=== PATIENT | female | born 1950 | race Caucasian/White ===

== ENCOUNTER → 2016-12-20 | Outpatient (CLI) | payer OTHER ==
[2016-12-20 13:47] LABS: CHOLESTEROL/HDL RATIO 2.4
== END | disposition home or self-care (01) ==
LOC: C.LABMFLN 08:14
PROVIDERS: ATTEND Physician Assistant
DX: E78.5 Hyperlipidemia, unspecified (principal)

== ENCOUNTER 2017-10-15 09:38 | Inpatient (IN) | payer OTHER ==
[2017-09-19 13:27] VITALS: BMI 28.0
--- NOTE | 2017-09-19 14:10 | PAT Medication Instructions ---
Service Date Sep 19, 2017. Current Home Medication List Atorvastatin (Lipitor), 40 MG PO HS Ogbxigrah-Gluuiabkigr-Zrxfwpi (Glucosamine Complex), 1 TAB PO QAM Celecoxib (Celebrex), 200 CAP PO QAM Coenzyme Q10 (Ubidecarenone) (Coq-10), 1 CAP PO QAM Fluticasone Propionate (Nasal) (Allergy Nasal [place] 24 Ho), 1 SPRAY MAURA QAM Multivitamin (Multivitamin), 1 TAB PO QAM Omeprazole (Prilosec), 20 MG PO QAM Tramadol (Ultram), 1 TAB PO UD PRN for Pain [gummy fiber], 2 TAB PO QAM Medication Instructions For Your Scheduled Surgery -Contact your surgeon for instructions for: Celecoxib (Celebrex), 200 CAP PO QAM - Hold the following medications 2 weeks prior to surgery: Hnhptbfdn-Sdgbiadulgw-Vmyfboz (Glucosamine Complex), 1 TAB PO QAM Coenzyme Q10 (Ubidecarenone) (Coq-10), 1 CAP PO QAM - Hold the following medications the morning of surgery: Multivitamin (Multivitamin), 1 TAB PO QAM [gummy fiber], 2 TAB PO QAM - Take the following medications the morning of surgery:: Fluticasone Propionate (Nasal) (Allergy Nasal [place] 24 Ho), 1 SPRAY MAURA QAM Omeprazole (Prilosec), 20 MG PO QAM Tramadol (Ultram), 1 TAB PO UD PRN for Pain (if needed, can be taken up to four hours before surgery) - Take the following medications as scheduled the night before surgery: Atorvastatin (Lipitor), 40 MG PO HS Tramadol (Ultram), 1 TAB PO UD PRN for Pain (if needed) If you have any questions please call us at [phone] or [phone] or [phone]
--- NOTE | 2017-09-19 14:44 | DIAGNOSTIC IMAGING REPORT ---
CHEST 2 VIEWS ROUTINE CLINICAL HISTORY: 67 years-old Female presenting with preoperative assessment. TECHNIQUE: PA and lateral views of the chest were obtained. COMPARISON: None. FINDINGS: Cardiomediastinal silhouette normal. Lungs and pleural spaces clear. Osseous structures normal. Upper abdomen normal. IMPRESSION: 1. No acute cardiopulmonary disease. Electronically signed by: Robert Marie M.D. 09/19/2017 2:43 PM Dictated Date/Time: 09/19/2017 2:42 PM
[2017-09-19 14:59] LABS: BASO % 0.6 %; BASO ABS # 0.04 K/uL (0-0.2); EOS % 2.3 %; EOS ABS # 0.16 K/uL (0-0.5); HEMATOCRIT 40.2 % (37-47); HEMOGLOBIN 13.9 g/dL (12.0-16.0); IG# 0.01 K/uL (0.00-0.02); LYMPH % 25.3 %; LYMPH ABS # 1.79 K/uL (1.2-3.4); MEAN CELL VOLUME 93.5 fL (80-100); MEAN CORPUSCULAR HEMOGLOBIN 32.3 pg (25-34); MEAN CORPUSCULAR HGB CONC 34.6 g/dl (32-36); MEAN PLATELET VOLUME 10.4 fL (7.4-10.4); MONO % 5.9 %; MONO ABS # 0.42 K/uL (0.11-0.59); NEUT % 65.8 %; NEUT ABS # 4.65 K/uL (1.4-6.5); PLATELET COUNT 217 K/uL (130-400); RED CELL DISTRIBUTION WIDTH CV 12.9 % (11.5-14.5); RED CELL DISTRIBUTION WIDTH SD 43.7 fL (36.4-46.3); WHITE BLOOD COUNT 7.07 K/uL (4.8-10.8)
[2017-09-19 15:07] LABS: PTT PATIENT 25.3 SECONDS (21.0-31.0)
[2017-09-19 15:08] LABS: ALBUMIN 3.8 gm/dl (3.4-5.0); CALCIUM 9.3 mg/dl (8.5-10.1); CREATININE 0.78 mg/dl (0.60-1.20); POTASSIUM 3.6 mmol/L (3.5-5.1)
[2017-09-20 06:23] LABS: HEMOGLOBIN A1C 5.6 % (4.5-5.6)
--- NOTE | 2017-10-14 19:14 | HISTORY & PHYSICAL EXAMINATION ---
DATE OF ADMISSION: 10/15/2017 CHIEF COMPLAINT: Chronic left knee pain. HISTORY OF PRESENT ILLNESS: This is a 67-year-old female patient of Dr. Moran, complaining of chronic left knee pain, longstanding, now progressively getting worse. The patient has failed conservative treatment including anti-inflammatories, Tylenol, narcotics, intraarticular injections, glucosamine and the use of a sleeve. The patient has been diagnosed with end-stage osteoarthritis per clinical and radiographic exams. The patient has increased pain with weightbearing activities and her pain does interfere with her activities of daily living. PAST MEDICAL HISTORY: Hypercholesterolemia, osteoarthritis, acid reflux. SOCIAL HISTORY: Nonsmoker and nondrinker. SURGICAL HISTORY: Bilateral carpal tunnel, trigger thumb on the right and trigger finger on the right. FAMILY HISTORY: Noncontributory. REVIEW OF SYSTEMS: Chronic left knee pain, otherwise denies any shortness of breath, chest pain, nausea, vomiting or any other joint complaints. MEDICATIONS: Tramadol as needed, atorvastatin 20 mg daily, Flonase 50 mcg actuation two sprays intranasally daily, omeprazole 20 mg daily, Celebrex 200 mg daily. ALLERGIES: INCLUDE BACITRACIN, NEOMYCIN, SULFA. PHYSICAL EXAM: GENERAL: Well-developed, well-nourished 67-year-old female, in no acute distress. She is alert and oriented x3 and pleasant. HEENT: Normocephalic, atraumatic. Extraocular motions are intact. Pupils are equal and reactive to light. HEART: Regular rate and rhythm, no murmurs appreciated. LUNGS: Clear. ABDOMEN: Soft and nontender. Bowel sounds are present. EXTREMITIES: Left knee reveals a range of motion of -10 to 125 degrees. She has a varus deformity with crepitation. She has a mild effusion. She has 4/5 strength and neurologically and neurovascularly, she is intact in her left lower extremity. DIAGNOSES: Left knee end-stage osteoarthritis, hypercholesterolemia, osteoarthritis, acid reflux. PLAN: The patient was advised of her diagnosis. Indications, risks, benefits, postop course have all been reviewed. The patient wished to proceed with a left total knee arthroplasty. Necessary consent forms, preoperative testing and clearances will be obtained.
--- NOTE | 2017-10-14 19:52 | HISTORY & PHYSICAL EXAMINATION ---
DATE OF ADMISSION: 10/15/2017 CHIEF COMPLAINT: Chronic left knee pain. HISTORY OF PRESENT ILLNESS: This is a 67-year-old female patient of Dr. Moran, complaining of chronic left knee pain, longstanding, now progressively getting worse. The patient has failed conservative treatment including Celebrex, tramadol, viscosupplementation, steroid injections, glucosamine/chondroitin and the use of a sleeve. The patient has been diagnosed with end-stage osteoarthritis per clinical and radiographic exams. The patient has increased pain with weightbearing activities and her pain does interfere with her activities of daily living. PAST MEDICAL HISTORY: Hypercholesterolemia, osteoarthritis, acid reflux. FAMILY HISTORY: Noncontributory. SOCIAL HISTORY: Nonsmoker and nondrinker. PAST SURGICAL HISTORY: Both carpal tunnels, trigger thumb on the right. MEDICATIONS: Include tramadol as needed, atorvastatin 20 mg daily, Flonase 50 mcg actuation two sprays daily, omeprazole 20 mg daily, Celebrex 200 mg daily. ALLERGIES: BACITRACIN, SULFA AND NEOSPORIN. PHYSICAL EXAMINATION: GENERAL: Well-developed, well-nourished 67-year-old female in no acute distress. She is alert, oriented x3 and pleasant. HEENT: Normocephalic, atraumatic. Extraocular motions are intact. Pupils are equal and reactive to light. HEART: Regular rate and rhythm. No murmurs are appreciated. LUNGS: Clear. ABDOMEN: Soft and nontender. Bowel sounds are present. EXTREMITIES: Left knee reveals a limited range of motion of -10 to 125 degrees. She has a varus deformity with crepitation. She has a mild effusion. She has 4/5 strength. NEUROLOGIC: Neurovascularly, she is intact in her left lower extremity. DIAGNOSES: Left knee end-stage osteoarthritis, hypercholesterolemia, osteoarthritis, acid reflux. PLAN: The patient was advised of her diagnosis. Indications, risks, benefits, postop course have all been reviewed. The patient wished to proceed with a left total knee arthroplasty. Necessary consent forms, preoperative testing and clearances will be obtained.
[2017-10-15] VITALS (9 sets, daily range): BP systolic 125–154; BP diastolic 71–82; PULSE 67–87; TEMP 36.4–37.1; O2SAT 93–100; Ht 165.1 cm; Wt 77.4 kg
[~2017-10-15] VITALS: Ht 165.1 cm; Wt 77.4 kg
[2017-10-15] MEDS: TRANEXAMIC ACID INJ 1,000 MG x 2 Bags IV SCH ×4 (06:00→06:30)
[~2017-10-15 09:38] MED LIST: ACETAMINOPHEN 500 MG TAB PO SCH; ATOR-24 PO; ATROPINE SULFATE 0.1 MG/ML 5ML SYR IV PRN; BOSW1TAB3 PO; BUPIVACAINE 0.25% 30 ML VIAL ONE; BUPIVACAINE 0.5 % 5 MG/1 ML PF 10ML VIAL ONE; CEFAZOLIN 1000MG IV PUSH 7.5 ML IV SCH; CLB100 PO; COEN100C11 PO; CeleBREX 200 MG CAP PO SCH; DEXAMETHASONE 4 MG TAB PO SCH; EpHEDrine SULFATE INJ 50 MG/ML AMP IV PRN; FAMOTIDINE 20 MG TAB PO SCH; FLUT50SP45 NAE; GABAPENTIN 300 MG CAP PO SCH; LACTATED RINGER'S 1000ML 1,000 ML IV SCH; LACTATED RINGER'S 1000ML 500 ML IV SCH; METOCLOPRAMIDE HCL 10 MG TAB PO SCH; MULT-506 PO; PRLSR20 PO; ROPIVACAINE 5MG/ML 30 ML 150 MG, BUPIVACAINE 0.5% MPF INJ 30 ML, EpINEphrine HCL INJ 0.... INFIL SCH; TRAM-10 PO; gummy fiber PO
[2017-10-15] MEDS ORDERED: MIDAZOLAM HCL 1 MG/ML 2ML VIAL ONE ×3 (09:45→13:28)
[2017-10-15] MEDS ORDERED: FENTANYL CITRATE INJ 50 MCG/1 ML 2 ML VIAL ONE (09:46)
--- NOTE | 2017-10-15 10:24 | History & Physical Bridge Note ---
H&P Re-Evaluation Bridge Note: I have examined the patient, reviewed the History & Physical and in the interval since the performance of the History & Physical I have noted the following changes of clinical significance: No changes noted
[2017-10-15] MEDS ORDERED: POVIDONE-IODINE OP SOLN 30 ML BTL ONE (11:00)
[2017-10-15] MEDS ORDERED: ORTHO JOINT ANESTHETIC ONE (11:00)
[2017-10-15] MEDS ORDERED: DEXAMETHASONE SOD INJ 4 MG/ML VIAL ONE (12:42)
[2017-10-15] MEDS ORDERED: PROPOFOL IV EMULSION 10 MG/ML 20 ML VIAL IV ONE (12:42)
[2017-10-15] MEDS ORDERED: ONDANSETRON INJ 2 MG/ML 2 ML VIAL ONE (12:42)
--- NOTE | 2017-10-15 13:17 | [facility] Post Operative Brief Note ---
Immediate Operative Summary Operative Date Oct 15, 2017. Pre-Operative Diagnosis Left knee end-stage osteoarthritis Post-Operative Diagnosis Left knee end-stage osteoarthritis Procedure(s) Performed Left Total Knee Arthroplasty Surgeon Dr. Jaret Martins Courier Driver Surgeon(s) Mic Hua PA-C Estimated Blood Loss 5ml Findings Consistent with Post-Op Diagnosis Specimens A) Left knee- bone & tissue Drains 2 hemovac Anesthesia Type MAC Spinal Regional Complication(s) none Disposition Disposition: Recovery Room / PACU
[2017-10-15] MEDS ORDERED: BISACODYL 10 MG SUPP PR PRN (14:00)
[2017-10-15] MEDS ORDERED: OXYCODONE HCL IR 5 MG TAB (IMMEDIATE RELEASE) PO PRN (14:00)
[2017-10-15] MEDS ORDERED: MAGNESIUM HYDROXIDE SUSP 30 ML UDC PO PRN (14:00)
[2017-10-15] MEDS ORDERED: ALUMINUM/MAGNESIUM/SIMETH (MAALOX MAX) 30 ML UDC PO PRN (14:00)
[2017-10-15] MEDS ORDERED: ONDANSETRON INJ 2 MG/ML 2 ML VIAL IV PRN (14:00)
[2017-10-15] MEDS ORDERED: MoRPHine SULFATE 2 MG/ML CARP IV PRN (14:00)
--- NOTE | 2017-10-15 14:22 | DIAGNOSTIC IMAGING REPORT ---
LEFT KNEE 2 VIEWS History: Left total knee arthroplasty. Degenerative arthritis. Postop. FINDINGS: The patient is status post a left total knee arthroplasty. The hardware is intact. No fracture or dislocation. Skin mehran and surgical drains are in place. IMPRESSION: Left total knee arthroplasty. No evidence for hardware complication. Electronically signed by: Dashawn Hughes M.D. 10/15/2017 2:21 PM Dictated Date/Time: 10/15/2017 2:20 PM
--- NOTE | 2017-10-15 14:31 | Anesthesiology Progress Note ---
Anesthesia Post Op Note Date & Time Oct 15, 2017 at 14:31 Vital Signs Pain Intensity: 0 Vital Signs Past 12 Hours Date Time Temp Pulse Resp B/P (MAP) Pulse Ox O2 Delivery O2 Flow Rate FiO2 10/15/17 14:20 36.4 70 14 142/78 100 Nasal Cannula 2 10/15/17 14:10 70 14 136/67 100 Nasal Cannula 2 10/15/17 14:00 77 14 135/70 100 Nasal Cannula 2 10/15/17 13:54 36.3 82 14 113/60 98 Oxymask 10 10/15/17 10:00 99 Room Air Notes Mental Status: alert / awake / arousable, participated in evaluation Pt Amnestic to Procedure: Yes Nausea / Vomiting: adequately controlled Pain: adequately controlled Airway Patency, RR, SpO2: stable & adequate BP & HR: stable & adequate Hydration State: stable & adequate Neuraxial Anesthesia: was administered, sensory block is resolving Anesthetic Complications: no major complications apparent
--- NOTE | 2017-10-15 15:45 | Medical Consult ---
Consultation Date of Consultation: Oct 15, 2017. Attending Physician: Jaret Martins M.D. Reason for Consultation: medical management History of Present Illness Ms. Martinez is post op left TKA. She feels good, still has some numbness in her lower extremities, no pain. She has a past medical history of hypercholesteremia and GERD ROS Constitutional: no chills, aches, sweats or fever Respiratory: no sob,cough, sputum, or wheezing Cardiac: no chest pain, palpitations, edema, orthopnea or lightheadedness GI: no abdominal pain, nausea, vomiting, diarrhea or constipation : no dysuria or hesitancy Extremities: see HPI Skin: no rash All other systems reviewed and negative Family History non contributory Social History Smoking Status: Never Smoker Smokeless Tobacco Use: No Alcohol Use: none Drug Use: none Marital Status: Housing Status: lives with significant other Occupation Status: retired Allergies Coded Allergies: Bacitracin (Verified Allergy, Unknown, will make wounds that med may be used on worse, 09/19/17) Neomycin (Verified Allergy, Unknown, will make wounds that med may be used on worse, 09/19/17) Polymyxin B (Verified Allergy, Unknown, will make wounds that med may be used on worse, 09/19/17) Home Medications Active Reported Coq-10 (Coenzyme Q10 (Ubidecarenone)) 100 Mg Cap 1 Cap PO QAM Multivitamin (Multivitamins) Tab 1 Tab PO QAM Glucosamine Complex (Iravjwugu-Kkibfdkjrwm-Vefoudf) 1 Tab Tab 1 Tab PO QAM [gummy fiber] 2 Tab PO QAM chewables Ultram (Tramadol HCl) 50 Mg Tab 1 Tab PO UD PRN Lipitor (Atorvastatin Calcium) 40 Mg Tab 40 Mg PO HS Prilosec (Omeprazole) 20 Mg Capcr 20 Mg PO QAM Allergy Nasal [place] 24 Ho (Fluticasone Propionate (Nasal)) 50 Mcg/Act Spr 1 [place] MAURA QAM Celebrex (Celecoxib) 100 Mg Cap 200 Cap PO QAM 30 Days Current Inpatient Medications Current Inpatient Medications Medications (Trade) Dose Ordered Sig/Bart Route Start Time Stop Time Status Last Admin Dose Admin Cefazolin Sodium 7.5 ml @ 2.5 mls/min PREOP IV 10/15/17 06:00 10/15/17 18:00 10/15/17 11:57 2.5 MLS/MIN Acetaminophen (Tylenol Tab) 1,000 mg PREOP PO 10/15/17 06:00 10/15/17 18:00 10/15/17 10:54 1,000 MG Celecoxib (CeleBREX CAP) 200 mg PREOP PO 10/15/17 06:00 10/15/17 18:00 10/15/17 10:57 200 MG Dexamethasone (Decadron Tab) 8 mg PREOP PO 10/15/17 06:00 10/15/17 18:00 10/15/17 10:56 8 MG Famotidine (Pepcid Tab) 20 mg PREOP PO 10/15/17 06:00 10/15/17 18:00 10/15/17 10:56 20 MG Gabapentin (Neurontin Cap) 300 mg PREOP PO 10/15/17 06:00 10/15/17 18:00 10/15/17 10:55 300 MG Metoclopramide HCl (Reglan Tab) 10 mg PREOP PO 10/15/17 06:00 10/15/17 18:00 10/15/17 10:55 10 MG Lactated Ringer's 1,000 ml @ 15 mls/hr Q24H IV 10/15/17 06:00 10/16/17 05:59 Atorvastatin Calcium (Lipitor Tab) 40 mg HS PO 10/15/17 21:00 11/14/17 20:59 Fluticasone Propionate (Flonase Nasal [place]) 1 sprays QAM MAURA 10/16/17 09:00 11/15/17 08:59 Multivitamins (Multivitamin Tab) 1 tab QAM PO 10/16/17 09:00 11/15/17 08:59 Morphine Sulfate (MoRPHine SULFATE INJ) 2 mg Q4HWA PRN IV 10/15/17 14:00 10/29/17 13:59 Potassium Chloride/Dextrose/ Sod Cl 1,000 ml @ 100 mls/hr Q10H IV 10/15/17 15:15 10/16/17 15:14 Cefazolin Sodium 2000 mg/Syringe 15 ml @ 3.75 mls/ min Q8H IV 10/15/17 20:00 10/16/17 04:03 Celecoxib (CeleBREX CAP) 200 mg BID PO 10/15/17 21:00 11/14/17 20:59 Oxycodone HCl (Roxicodone Immediate Rel Tab) 1 TABLET FOR PAIN RATING... Q4H PRN PO 10/15/17 14:00 10/29/17 13:59 Acetaminophen (Tylenol Tab) 1,000 mg Q8 PO 10/15/17 20:00 11/14/17 19:59 Magnesium Hydroxide (Milk Of Magnesia Susp) 30 ml Q6H PRN PO 10/15/17 14:00 11/14/17 13:59 Bisacodyl (Dulcolax Supp) 10 mg DAILY PRN CO 10/15/17 14:00 11/14/17 13:59 Senna (Senokot Tab) 17.2 mg HS PO 10/15/17 21:00 11/14/17 20:59 Docusate Sodium (coLACE CAP) 100 mg BID PO 10/15/17 21:00 11/14/17 20:59 Al Hydrox/Mg Hydrox/Simethicone (Maalox Max Susp) 15 ml Q4H PRN PO 10/15/17 14:00 11/14/17 13:59 Ondansetron HCl (Zofran Inj) 4 mg Q6H PRN IV 10/15/17 14:00 11/14/17 13:59 Ferrous Gluconate (Ferrous Gluconate Tab) 324 mg TIDM PO 10/15/17 17:45 11/14/17 17:59 Pantoprazole Sodium (Protonix Tab) 40 mg QAM PO 10/16/17 09:00 10/20/17 08:59 Tramadol HCl (Ultram Tab) 1 tablet for pain rating... Q4H PRN PO 10/15/17 14:00 11/14/17 13:59 Aspirin (Ecotrin Tab) 81 mg BID PO 10/15/17 21:00 11/14/17 20:59 Physical Exam Date Time Temp Pulse Resp B/P (MAP) Pulse Ox O2 Delivery O2 Flow Rate FiO2 10/15/17 14:38 99 Nasal Cannula 2.0 10/15/17 14:35 99 Nasal Cannula 2.0 10/15/17 14:33 36.4 71 16 141/71 (94) 99 Nasal Cannula 2.0 10/15/17 14:20 36.4 70 14 142/78 100 Nasal Cannula 2 10/15/17 14:10 70 14 136/67 100 Nasal Cannula 2 10/15/17 14:00 77 14 135/70 100 Nasal Cannula 2 10/15/17 13:54 36.3 82 14 113/60 98 Oxymask 10 10/15/17 10:00 99 Room Air General: no distress Eyes: normal inspection, PERLL Respiratory: chest non tender, clear to auscultation, normal breath sounds, no respiratory distress, no accessory muscle use Cardiac: regular rate and rhythm, no rub or gallop, no murmur, no edema, no jvd , palpable pedal pulses GI/: active bowel sounds, no abd pain or tenderness, soft, non distended Extremities: normal range of motion, normal strength, non tender, numbness to palpation bilaterally Neuro/Psych: alert and oriented x 3, normal mood and affect Skin: normal color, dry Laboratory Results Last 24 Hours Test 10/15/17 14:40 Assessment & Plan Ms. Martinez is a 67 year old woman post op left TKA. Post op left TKA - monitor for acute blood loss anemia - cbc am - bowel regimen, pain control, dvt prophylaxis per primary team Hypercholesteremia - continue lipitor GERD - continue protonix Supervising Note Dr. Sheriff I performed a history and physical examination on the patient. I reviewed above note and agree with it. I discussed plan with APC and patient. During my face to face encounter with the patient, I answered all of the patient's questions. Will continue lipitor and protonix as stated above for Dyslipidemia, and GERD. Medicine will sign off case. Please call us for any concerns or questions
[2017-10-15] MEDS: D5W AND 1/2NSS + 20MEQ KCL 1,000 ML IV SCH (16:01)
--- NOTE | 2017-10-15 16:27 | [facility] Operative Report ---
Operative Report Operative Date Oct 15, 2017. Pre-Operative Diagnosis Left knee end-stage osteoarthritis Post-Operative Diagnosis Same Procedure(s) Performed Left total knee arthroplasty Surgeon Dr. Jaret Martins Corporate Tax Preparer Surgeon(s) Mic Hua PA-C Estimated Blood Loss 5ml Findings Grade 4 medial compartment DJD grade 4 varus knee Specimens A) Left knee- bone & tissue Drains 2 hemovac Anesthesia Spinal sedation regional block orthomix Complication(s) None Disposition Recovery Room / PACU Indications 67-year-old female end-stage arthritis left knee failed conservative management Description of Procedure The patient was taken to the operating room and anesthetized under spinal sedation regional block. Patient was placed supine on the the operating table. A pneumatic tourniquet was placed about the left upper thigh. The knee exam demonstrated varus knee no pseudolaxity flexion contracture -5 good flexion.. The involved leg was elevated exsanguinated with Esmarch bandage and the pneumatic tourniquet was raised to 325 millimeters mercury. A longitudinal incision was made across the anterior knee. Skin flaps were elevated. An incision was made into the medial retinaculum and extended up into the mid third of the quadriceps tendon and extended down to the tibial tubercle. Intra- articular findings demonstrated medial compartment OA anterior medial bone-on- bone. The knee was exposed by excising cruciate ligaments and menisci. The infrapatellar fat pad was resected. The fat pad over the anterior femur at the upper aspect of the articular surface was resected for placement of the component in that area. A subperiosteal peel lateral release was performed around the patella The [place] 2.0 total knee arthroplasty system was utilized for the procedure. The custom femoral cutting guide was pinned in position. The distal femoral cut was made. The size 6, 5 in 1 cutting block was placed. The anterior posterior and chamfer cuts were made. The knee was extended and a free hand cut technique was performed to the patella. The patella with was measured and the width was reproduced using a patella component. 3 drill holes are made for the patella component pegs. The tibia was then subluxed. The custom tibial cutting block was pinned in position and the proximal tibial cut was made with the oscillating saw. The size 3 tibial trial was externally rotated in line with the tibial tubercle and pinned in position. The punch for the stem was used. The femoral trial was inserted and centered the notch cutting devices were used and the collet was placed. Tibial trials were used for the insert. The size 12 trial gave balanced ligaments through full range of motion. Patella tracking was assessed with range of motion. The patella tracked centrally. The trials were removed. The Orthomix anesthetic cocktail was injected per protocol. The cut bone surfaces and soft tissue were copiously irrigated with pulsatile lavage saline. The final components were cemented with Simplex cement. The final components were 6 Oxinium posterior stabilized left femur [employer] journey 2.0 femoral component, 3 tibial baseplate, 12 mm high flex poly-tibial insert and 35 mm patella dome component. While the cement cured the Betadine soak was used per protocol. When the cement cured the knee was copiously irrigated with pulsatile lavage saline solution. 2 drains were brought out laterally connected to Hemovac. The quadriceps tendon and medial retinaculum were closed with interrupted [id number] #1 Vicryl sutures. The knee was taken through full range of motion and repair was secure. The subcutaneous tissues were closed with 2-0 Vicryl sutures. The skin was closed with mehran. A sterile dressing was applied. The tourniquet was let down and the patient had good capillary refill to the extremity. The patient tolerated the procedure well. My physician assistant spa manager Mic Hua assisted in the procedure including prepping draping leg positioning soft tissue retraction instrument management and assisted in the closure ,dressings application and will participate in postoperative care the patient. I attest to the content of the Intraoperative Record and any orders documented therein. Any exceptions are noted below.
[2017-10-15] MEDS: FERROUS GLUCONATE 324 MG TAB PO SCH (17:54)
[2017-10-15] MEDS: CEFAZOLIN IV 2,000 MG in SYRINGE 0 ML IV SCH (20:12)
[2017-10-15] MEDS: ASPIRIN 81 MG ECTAB PO SCH (20:12)
[2017-10-15] MEDS: SENNA 8.6 MG TAB PO SCH (20:13)
[2017-10-15] MEDS: ATORVASTATIN 40 MG TAB PO SCH (20:13)
[2017-10-15] MEDS: CeleBREX 200 MG CAP PO SCH (20:13)
[2017-10-15] MEDS: DOCUSATE SODIUM 100 MG CAP PO SCH (20:13)
[2017-10-15] MEDS: ACETAMINOPHEN 500 MG TAB PO SCH (20:14)
[2017-10-16] MEDS: D5W AND 1/2NSS + 20MEQ KCL 1,000 ML IV SCH ×2 (00:42→10:27)
[2017-10-16 02:59] VITALS: BP 98/55; PULSE 58; TEMP 36.4; O2SAT 97
[2017-10-16] MEDS: CEFAZOLIN IV 2,000 MG in SYRINGE 0 ML IV SCH (03:56)
[2017-10-16] MEDS: TRAMADOL HCL 50 MG TAB PO PRN ×4 (04:03→20:34)
[2017-10-16] MEDS: ACETAMINOPHEN 500 MG TAB PO SCH ×3 (05:29→21:45)
[2017-10-16 07:02] LABS: HEMATOCRIT 37.1 % (37-47); HEMOGLOBIN 12.9 g/dL (12.0-16.0); MEAN CORPUSCULAR HEMOGLOBIN 32.3 pg (25-34); MEAN CORPUSCULAR HGB CONC 34.8 g/dl (32-36); MEAN PLATELET VOLUME 10.3 fL (7.4-10.4); PLATELET COUNT 208 K/uL (130-400); RED CELL DISTRIBUTION WIDTH CV 12.7 % (11.5-14.5); RED CELL DISTRIBUTION WIDTH SD 43.1 fL (36.4-46.3); WHITE BLOOD COUNT 19.21 K/uL (4.8-10.8)
[2017-10-16 07:07] VITALS: BP 118/70; PULSE 67; TEMP 36.5; O2SAT 96
[2017-10-16 07:39] LABS: CALCIUM 8.8 mg/dl (8.5-10.1); CREATININE 0.87 mg/dl (0.60-1.20)
[2017-10-16] MEDS: MULTIVITAMIN TAB PO SCH (08:45)
[2017-10-16] MEDS: CeleBREX 200 MG CAP PO SCH ×2 (08:45→20:36)
[2017-10-16] MEDS: DOCUSATE SODIUM 100 MG CAP PO SCH ×2 (08:45→20:36)
[2017-10-16] MEDS: ASPIRIN 81 MG ECTAB PO SCH ×2 (08:45→20:35)
[2017-10-16] MEDS: FERROUS GLUCONATE 324 MG TAB PO SCH ×3 (08:46→17:50)
[2017-10-16] MEDS: PANTOprazole SOD 40 MG TAB PO SCH (08:46)
[2017-10-16] MEDS: FLUTICASONE PROPIONATE NA SPR 16 GM BTL NAE SCH (08:46)
[2017-10-16] MEDS ORDERED: NON-FORMULARY MEDICATION (Coenzyme Q10 (Ubidecarenone) (Coq-10) 1 CAP) PO SCH (09:00)
[2017-10-16] MEDS ORDERED: MULTIVITAMIN TAB PO SCH (09:00)
--- NOTE | 2017-10-16 10:10 | Orthopedic Progress Note ---
Orthopedic Progress Note Date of Service Oct 16, 2017. Subjective Post OP Day: 1 Reports: feeling well, pain controlled w PO medications, Denies: complaints, chest pain, SOB, nausea / vomiting, light headedness, calf pain Objective calves soft nontender, N/V intact, capillary refill less than 2 sec., dressing C /D/I, A&O x3, toes mobile Date Time Temp Pulse Resp B/P (MAP) Pulse Ox O2 Delivery O2 Flow Rate FiO2 10/16/17 07:07 36.5 67 17 118/70 (86) 96 Room Air 10/16/17 02:59 36.4 58 15 98/55 (69) 97 Room Air 10/16/17 01:35 Room Air 10/15/17 22:53 37.1 79 16 125/74 (91) 93 Room Air 10/15/17 19:56 36.7 87 18 138/81 (100) 95 Room Air 10/15/17 17:19 36.5 67 16 154/78 (103) 100 Nasal Cannula 2.0 10/15/17 16:03 36.7 75 16 147/82 (103) 100 Nasal Cannula 2.0 10/15/17 15:35 Nasal Cannula 2.0 10/15/17 15:35 36.7 70 16 149/79 (102) 100 Room Air 10/15/17 14:38 99 Nasal Cannula 2.0 10/15/17 14:35 99 Nasal Cannula 2.0 10/15/17 14:33 36.4 71 16 141/71 (94) 99 Nasal Cannula 2.0 10/15/17 14:20 36.4 70 14 142/78 100 Nasal Cannula 2 10/15/17 14:10 70 14 136/67 100 Nasal Cannula 2 10/15/17 14:00 77 14 135/70 100 Nasal Cannula 2 10/15/17 13:54 36.3 82 14 113/60 98 Oxymask 10 Laboratory Results 24 Hours: Test 10/16/17 06:47 Hematocrit 37.1 % Hemoglobin 12.9 g/dL Assessment & Plan Assessment: POD #1, LEFT TKA Plan: PT/ OT DVT PROPH- ASA D/C PLANNING- OPPT PER MEDICINE Inhouse Planning Pain Management: Celebrex, Ultram, Morphine, PO Tylenol, Oxy IR DVT Prophylaxis: TEDs, SCDs, ASA Discharge Planning Discharge Planning: home with oppt Pain Management: Celebrex, PO Tylenol, Oxy IR DVT Prophylaxis: TEDs ASA Therapy: Physical Therapy, Occupational Therapy
--- NOTE | 2017-10-16 14:24 | Anesthesiology Progress Note ---
Anesthesia Post Op Note Date & Time Oct 16, 2017 at 14:23 Vital Signs Vital Signs Past 12 Hours Date Time Temp Pulse Resp B/P (MAP) Pulse Ox O2 Delivery O2 Flow Rate FiO2 10/16/17 07:40 Room Air 10/16/17 07:07 36.5 67 17 118/70 (86) 96 Room Air 10/16/17 02:59 36.4 58 15 98/55 (69) 97 Room Air Notes Mental Status: alert / awake / arousable, participated in evaluation Pt Amnestic to Procedure: Yes Nausea / Vomiting: adequately controlled Pain: adequately controlled Airway Patency, RR, SpO2: stable & adequate BP & HR: stable & adequate Hydration State: stable & adequate Neuraxial Anesthesia: sensory block resolved Anesthetic Complications: no major complications apparent
[2017-10-16 15:23] VITALS: BP 120/67; PULSE 64; TEMP 36.6; O2SAT 97
[2017-10-16] MEDS: ATORVASTATIN 40 MG TAB PO SCH (20:35)
[2017-10-16] MEDS: SENNA 8.6 MG TAB PO SCH (20:35)
[2017-10-16 23:15] VITALS: BP 107/67; PULSE 61; TEMP 36.6; O2SAT 95
[2017-10-17] MEDS: ACETAMINOPHEN 500 MG TAB PO SCH (05:19)
[2017-10-17] MEDS: TRAMADOL HCL 50 MG TAB PO PRN ×2 (06:25→11:41)
[2017-10-17 06:43] VITALS: BP 120/68; PULSE 72; TEMP 36.5; O2SAT 95
--- NOTE | 2017-10-17 07:03 | Orthopedic Progress Note ---
Orthopedic Progress Note Date of Service Oct 17, 2017. Subjective Post OP Day: 2 Reports: feeling well, pain controlled w PO medications, Denies: complaints, chest pain, SOB, nausea / vomiting, light headedness, calf pain Objective calves soft nontender, N/V intact, capillary refill less than 2 sec., dressing C /D/I, A&O x3, toes mobile SILVERLON IN TACT Date Time Temp Pulse Resp B/P (MAP) Pulse Ox O2 Delivery O2 Flow Rate FiO2 10/17/17 06:43 36.5 72 17 120/68 (85) 95 Room Air 10/16/17 23:50 Room Air 10/16/17 23:15 36.6 61 15 107/67 (80) 95 Room Air 10/16/17 15:33 Room Air 10/16/17 15:23 36.6 64 16 120/67 (84) 97 Room Air 10/16/17 07:40 Room Air 10/16/17 07:07 36.5 67 17 118/70 (86) 96 Room Air Assessment & Plan Assessment: POD #2, LEFT TKA Plan: PT/ OT DVT PROPH- ASA D/C PLANNING- OPPT TODAY PER MEDICINE Inhouse Planning Pain Management: Celebrex, Ultram, Morphine, PO Tylenol, Oxy IR DVT Prophylaxis: TEDs, SCDs, ASA Discharge Planning Discharge Planning: home with oppt Pain Management: Celebrex, PO Tylenol, Oxy IR DVT Prophylaxis: TEDs, ASA Therapy: Physical Therapy, Occupational Therapy
[2017-10-17] MEDS ORDERED: ASPI-320 PO (07:04)
[2017-10-17] MEDS ORDERED: ACET-24 PO (07:04)
[2017-10-17] MEDS ORDERED: ULT50X PO (07:05)
[2017-10-17] MEDS ORDERED: CLB200 PO (07:05)
--- NOTE | 2017-10-17 07:06 | Discharge Instructions ---
Discharge Instructions Date of Service Oct 17, 2017. Admission Reason for Admission: Left Knee Osteoarthritis Discharge Discharge Diagnosis / Problem: LEFT TKA Discharge Goals Goal(s): Improve function Activity Recommendations Activity Limitations: as noted below . Instructions / Follow-Up Instructions / Follow-Up ACTIVITY RECOMMENDATIONS: SELF CARE INSTRUCTIONS AFTER TOTAL KNEE REPLACEMENT A. You may need to continue a physical therapy program after discharge from the hospital. There are several options available to you. Your doctor will assist you in selecting the best one for you. 1. An out-patient facility 2 to 3 times a week for therapy or home therapy. 2. Continue working on all exercises taught to you in the hospital. Your goals should be to increase bending of your knee to 90 degrees and beyond and to fully straighten your knee. B. You may progress at your own pace from walking with a walker or crutches to a cane; then to no assistive devices. C. Make walking a part of your daily routine. Be up as much as comfortable with rest periods throughout the day. Rest with leg elevation is very important. Use the ice wrap frequently for the first 3-4 weeks. D. There are no restrictions on activities. You may ride in a car, shop, participate in applied marine physics professor and all social activities. E. Wear the long elastic stockings (FAUSTO hose) 20 hours a day for 2 weeks after surgery. They can be removed several times a day for laundering and for a bath. F. You may shower, no tub baths until cleared by your doctor. SPECIAL CARE INSTRUCTIONS: VERY IMPORTANT TO READ AND REVIEW A. There are a few signs you need to watch for after you are home. Call [facility] if you notice any of the followin. Increased severe knee pain. Some pain is expected especially when you exercise. 2. Increased swelling in your leg or knee; pain or swelling of the calf muscle in either lower leg. 3. Any fluid drainage from the incision. 4. Shortness of breath or chest pain. B. Please call [facility] at if you have any concerns or questions about your operation or recovery. The doctor or his nurse will return your call promptly. C. You must take antibiotics before dental work, bladder, bowel or other surgery. Your doctor will provide you with a permanent care to carry describing this precaution. IMPORTANT: * REMEMBER TO TAKE ASPIRIN, 81 MG, TWICE DAILY FOR 4 WEEKS UNLESS OTHERWISE DIRECTED. THIS IS YOUR BLOOD THINNER. * HIGH RISK PATIENTS MAY BE PRESCRIBED A STRONGER BLOOD THINNER. THIS WILL BE PROVIDED AT DISCHARGE. * CALL IF INCREASED PAIN, REDNESS, DRAINAGE OR FEVER GREATER THAT 101. * WEAR FAUSTO HOSE 20 HOURS PER DAY FOR 2 WEEKS. * YOU MAY HAVE A LARGE BAND-AID LIKE DRESSING (SILVERON). THIS WILL REMAIN ON YOUR INCISION FOR 7 DAYS, THEN CAN BE REMOVED. IF INCISION IS LEAKING THROUGH DRESSING, CALL THE OFFICE . FOLLOW UP VISIT: If appointment is not already scheduled: Please call [facility] to make a follow-up appointment for 2 weeks after your surgery at . Current Hospital Diet Patient's current hospital diet: Regular Diet Discharge Diet Recommended Diet: Regular Diet Procedures Procedures Performed: Left Total Knee Arthroplasty Pending Studies Studies pending at discharge: no Laboratory Results Hemoglobin A1c Test 09/19/17 13:47 Range/Units Estimated Average Glucose 114 mg/dl Hemoglobin A1c 5.6 4.5-5.6 % Medical Emergencies . Who to Call and When: Medical Emergencies: If at any time you feel your situation is an emergency, please call 911 immediately. . Non-Emergent Contact Non-Emergency issues call your: Primary Care Provider . "Provider Documentation" section prepared by Dom Emerson. . [place] Drug Monitoring Program Search Results: patient reviewed within database, no issues identified
[2017-10-17] MEDS: FERROUS GLUCONATE 324 MG TAB PO SCH (08:50)
[2017-10-17] MEDS: FLUTICASONE PROPIONATE NA SPR 16 GM BTL NAE SCH (08:51)
[2017-10-17] MEDS: CeleBREX 200 MG CAP PO SCH (08:51)
[2017-10-17] MEDS: DOCUSATE SODIUM 100 MG CAP PO SCH (08:51)
[2017-10-17] MEDS: MULTIVITAMIN TAB PO SCH (08:52)
[2017-10-17] MEDS: ASPIRIN 81 MG ECTAB PO SCH (08:52)
[2017-10-17] MEDS: PANTOprazole SOD 40 MG TAB PO SCH (08:52)
[2017-10-17 09:13] VITALS: BP 120/68; PULSE 72; TEMP 36.5; O2SAT 95
--- NOTE | 2017-10-20 16:24 | DISCHARGE SUMMARY ---
DISCHARGE DIAGNOSIS: Degenerative joint disease, left knee. SECONDARY DIAGNOSES: Hypercholesterolemia, gastroesophageal reflux disease. CONSULTS: MONA Verma/Kenny Sheriff M.D. COMPLICATIONS: None. PROCEDURE: Left total knee arthroplasty performed by Dr. Martins on 10/15/2017. BRIEF HISTORY: As dictated in the history and physical. HOSPITAL SUMMARY: The patient was admitted on the above-noted date and had the above-noted surgery performed, which she tolerated well. On the first postoperative day, she was feeling well and pain was controlled and had no complaints. Her calves were nontender. Neurovascularly intact. Dressings clean, dry and intact. Toes were mobile. Capillary refill is less than 2 seconds and hemoglobin was 12.9. Vital signs are stable and she was afebrile and started on physical therapy protocol and continued on DVT prophylaxis and pain management. Plans are for her to return home to do outpatient PT. By her second postoperative day, she was feeling well and pain was controlled. She had no complaints. Calves were nontender. Neurovascularly intact. Dressings clean, dry and intact. Toes were mobile. Vital signs were stable. She was afebrile. She was progressing with her physical therapy. She was remaining medically stable and was felt that she could be discharged to home. For further review, please see chart. LAB AND X-RAY DATA: As per chart. DISCHARGE INSTRUCTIONS: The patient was discharged home in satisfactory condition on 10/17/2017. DIET: Regular. ACTIVITY: Follow TK instruction sheets and special care instructions as noted. Follow up with Dr. Martins in two weeks. The patient to call for appointment if one has not been made for you. DISCHARGE MEDICATIONS: Acetaminophen 1000 mg p.o. q. 8 hours. for 21 days, aspirin 81 mg p.o. b.i.d. for 30 days, Celebrex 200 mg p.o. b.i.d. for 30 days, tramadol 50-100 mg p.o. q. 4 hours. p.r.n. Resume home meds as listed. Stop taking tramadol and you may resume your Celebrex once daily after 30 days.
== END 2017-10-17 12:21 | disposition home or self-care (01) | DRG 470 ==
LOC: C.ACU 09:38 → C.3E 13:54 → ENRESERV 14:03
PROVIDERS: ADMIT Orthopaedic Surgery Sports Medicine; ATTEND Orthopaedic Surgery Sports Medicine
PROC: 0SRD0J9 Replacement of Left Knee Joint with Synthetic Substitute, Cemented, Open Approach (ICD-10-PCS; principal; 2017-10-15 12:15)
DX: M17.12 Unilateral primary osteoarthritis, left knee (principal); E78.5 Hyperlipidemia, unspecified; K21.9 Gastro-esophageal reflux disease without esophagitis; Z88.2 Allergy status to sulfonamides; Z88.1 Allergy status to other antibiotic agents

== ENCOUNTER 2018-09-17 04:53 | Inpatient (IN) ==
--- NOTE | 2018-09-02 12:22 | Anesthesiology Consultation ---
Date of Service September 02, 2018 Assessment & Plan (1) Encounter for pre-operative examination: Chart Review Chart Review: Acceptable Risk for Surgery and Patient NOT seen in Pre Admission Testing History Surgery Operation Date: 09/17/18 11:55 Proposed Procedures p Right Total Knee Arthroplasty - Jaret Martins MD Height/Weight Height: 5 ft 5 in Weight: 72.575 kg Allergies Allergy/AdvReac Type Severity Reaction Status Date / Time bacitracin Allergy Unknown will make Verified 08/03/18 09:24 wounds that med may be used on worse neomycin Allergy Unknown will make Verified 08/03/18 09:24 wounds that med may be used on worse polymyxin B Allergy Unknown will make Verified 08/03/18 09:24 wounds that med may be used on worse Medications Home Medications Medication Instructions Recorded Confirmed Last Taken acetaminophen [Tylenol] 325 mg PO Q6H PRN 08/03/18 08/03/18 Unknown atorvastatin 20 mg PO QPM 08/03/18 08/03/18 Unknown calcium carbonate [Calcium 500] 500 mg PO QPM 08/03/18 08/03/18 Unknown cholecalciferol (vitamin D3) 1,000 unit PO QAM 08/03/18 08/03/18 Unknown [Vitamin D3] cranberry fruit [cranberry] 450 mg PO DAILY 08/03/18 08/03/18 Unknown fluticasone 1 spray INTRANASAL DAILY 08/03/18 08/03/18 Unknown [id number] 1 tab PO BID PRN 08/03/18 08/03/18 Unknown [Osteo Bi-Flex Triple Strength] inulin [Fiber Gummies] 1 tab PO QPM 08/03/18 08/03/18 Unknown multivitamin 1 cap PO QAM 08/03/18 08/03/18 Unknown tramadol 50 mg PO QID PRN 08/03/18 08/03/18 Unknown Past Medical History Medical History GERD (gastroesophageal reflux disease) Hyperlipidemia Past Surgical History Surgical History History of arthroplasty of left knee History of carpal tunnel release B/L Hx of partial thyroidectomy 2/2 CYST Hx of tubal ligation Status post trigger finger release RIGHT Social History Smoking Status: Never smoker Do You Dip or Chew Tobacco: No Hx Alcohol Use: No Hx Substance Use: No substance use type: does not use Testing Electrocardiogram Date: 09/19/17 SB with sinus arrhythmia at 57bpm. Laboratory Results 09/01/18 WBC 5.11 H/H 13.9/41.7 PLATELETS 220 SODIUM 141 POTASSIUM 3.7 CHLORIDE 109 CO2 29 BUN 15 CREATININE 0.79 GLUCOSE 100 PT 10.5 PTT 25.0 INR 1.0 T&S A+Ab-
--- NOTE | 2018-09-16 21:19 | History and Physical Report ---
DATE OF ADMISSION: 09/17/2018 CHIEF COMPLAINT: Chronic right knee pain and instability. HISTORY OF PRESENT ILLNESS: This is a 68-year-old female patient of Dr. Matrins'abbe complaining of chronic right knee pain and instability, longstanding, now progressively getting worse. The patient has failed conservative treatment including anti-inflammatories, Tylenol and intra-articular injections. She has also used a brace. She has failed conservative treatment. She has been diagnosed with end-stage osteoarthritis per clinical and radiographic exams. The patient has increased pain with weightbearing activities and her pain does interfere with her activities of daily living. PAST MEDICAL HISTORY: Hypercholesterolemia, osteoarthritis, otherwise a healthy 68-year-old female. SOCIAL HISTORY: Nonsmoker, nondrinker. PAST SURGICAL HISTORY: Left knee replacement, bilateral carpal tunnel surgeries, trigger thumb surgeries, thyroid surgery and tubal ligation. FAMILY HISTORY: Noncontributory. REVIEW OF SYSTEMS: The patient complains of chronic right knee pain and instability. Otherwise, denies any shortness of breath, chest pain, nausea, vomiting or any other joint complaints. MEDICATIONS: Tramadol as needed, Flonase 50 mcg actuation 2 sprays daily in each nostril, atorvastatin 40 mg daily, tramadol 50 mg as needed, Fiber Gummies 2 g daily, glucosamine 500 mg daily, multivitamin daily, CoQ10 100 mg daily. ALLERGIES: NEOSPORIN/BACITRACIN/POLYMYXIN B, WHICH ALL CAUSE RASHES. PHYSICAL EXAMINATION: GENERAL: Well-developed, well-nourished 68-year-old female in no acute distress. She is alert and oriented x3 and pleasant. HEENT: Normocephalic, atraumatic. Extraocular motions are intact. Pupils are equal and reactive to light. HEART: Regular rate and rhythm, no murmurs appreciated. LUNGS: Clear. ABDOMEN: Soft, nontender, bowel sounds present. EXTREMITIES: Right knee reveals a mild effusion with limited range of motion of 0-130 degrees. She has a varus deformity with medial joint line tenderness. The patient has crepitation with passive range of motion. NEUROLOGIC: Neurovascularly, she is intact in her right lower extremity. DIAGNOSES: Right knee end-stage osteoarthritis, hypercholesterolemia. PLAN: The patient was advised of her diagnosis. Indications, risks, benefits, postop course have all been reviewed. The patient wished to proceed with a right total knee arthroplasty. Necessary consent forms, preoperative testing and clearances will be obtained.
[2018-09-17] MEDS ORDERED: GABAPENTIN 300 MG PO SCH (06:00)
[2018-09-17] MEDS ORDERED: dexAMETHasone 4 MG TAB PO SCH (06:00)
[2018-09-17] MEDS ORDERED: ROPIVACAINE 0.5% HCL/PF 150 MG, BUPIVACAINE 0.5% MPF 30 ML, EPINEPHrine 30MG/30ML (OR U... INFIL SCH (06:00)
[2018-09-17] MEDS ORDERED: TRANEXAMIC ACID 1,000 MG **IV Pre-op IV SCH (06:00)
[2018-09-17] MEDS ORDERED: LR 15ML/HR IV SCH (06:00)
[2018-09-17] MEDS ORDERED: CEFAZOLIN 1000MG 1,000 MG/7.5 ML SYR IV SCH (06:00)
[2018-09-17] MEDS ORDERED: FAMOTIDINE 20 MG TAB PO SCH (06:00)
[2018-09-17] MEDS ORDERED: METOCLOPRAMIDE HCL 10 MG TABLET PO SCH (06:00)
[2018-09-17] MEDS ORDERED: ACETAMINOPHEN 500 MG TAB PO SCH (06:00)
[2018-09-17] MEDS ORDERED: CeleBREX 200 MG CAP PO SCH (06:00)
[2018-09-17] MEDS ORDERED: BUPIVACAINE 0.5 % 5 MG/1 ML PF 10ML VIAL ONE (06:20)
[2018-09-17] MEDS ORDERED: BUPIVACAINE/EPINEPHRINE 0.5% MPF 1:200,000 30 ML VIAL ONE (06:20)
[2018-09-17] MEDS ORDERED: DEXAMETHASONE SOD INJ 4 MG/ML VIAL ONE (06:21)
[2018-09-17] MEDS ORDERED: TRANEXAMIC ACID 1,000 MG **IV Intra-op IV SCH (06:30)
[2018-09-17] MEDS ORDERED: MIDAZOLAM HCL 1 MG/ML 2ML VIAL ONE ×2 (06:46→07:34)
[2018-09-17] MEDS ORDERED: LIDOCAINE HCL 2% 2 ML VIAL/AMP(20MG/ML) INFIL ONE (06:46)
[2018-09-17] MEDS ORDERED: PROPOFOL IV EMULSION 10 MG/ML 20 ML VIAL IV ONE ×3 (06:46→08:03)
[2018-09-17] MEDS ORDERED: fentaNYL citrate 100 MCG/2 ML VIAL ONE (06:47)
[2018-09-17] MEDS ORDERED: POVIDONE-IODINE OP SOLN 30 ML BTL ONE (06:59)
[2018-09-17] MEDS ORDERED: BACITRACIN INJ 50,000 UNIT VIAL ONE (06:59)
[2018-09-17] MEDS ORDERED: ORTHO JOINT ANESTHETIC ONE (06:59)
--- NOTE | 2018-09-17 06:59 | History & Physical Bridge Note ---
Date of Service September 17, 2018 History & Physical Bridge Note I have examined the patient, reviewed the History & Physical and in the interval since the performance of the History & Physical I have noted the following changes of clinical significance: no changes noted
[2018-09-17] MEDS ORDERED: ATROPINE SULFATE 0.1 MG/ML 10ML SYR IV PRN (07:27)
[2018-09-17] MEDS ORDERED: fentaNYL citrate 100 MCG/2 ML VIAL IV PRN (07:27)
[2018-09-17] MEDS ORDERED: ONDANSETRON INJ 2 MG/ML 2 ML VIAL IV PRN ×2 (07:27→10:26)
[2018-09-17] MEDS ORDERED: ePHEDrine sulfate 50 MG/ML AMP IV PRN (07:27)
[2018-09-17] MEDS ORDERED: ONDANSETRON INJ 2 MG/ML 2 ML VIAL ONE (07:37)
--- NOTE | 2018-09-17 09:13 | Post Operative Brief Note ---
Immediate Post Op Note v1 Date of Surgery September 17, 2018 Pre & Post Diagnosis Operation Date: 09/17/18 07:15 Pre-Op Diagnosis: RIGHT KNEE OSTEOARTHRITIS Post-Op Diagnosis: RIGHT KNEE OSTEOARTHRITIS Procedure Operation Date: 09/17/18 07:15 Actual Procedures p Right Total Knee Arthroplasty(Right) - Jaret Martins MD Surgeon Jaret Martins MD Infantry Officer Dom BRITTON Estimated Blood Loss 5 Findings Consistent with Post-Op Diagnosis Specimens Bone cuts Drains Hemovac Drain (10 fr dual trocar) Anesthesia Type Spinal MAC Complications none Disposition Accompanied Patient To Recovery: No Disposition: Recovery Room Overlapping Procedure I was immediately available: during the entire case.
--- NOTE | 2018-09-17 09:20 | Operative Report ---
Post Operative Report Pre & Post Diagnosis Operation Date: 09/17/18 07:15 Pre-Op Diagnosis: RIGHT KNEE OSTEOARTHRITIS Post-Op Diagnosis: RIGHT KNEE OSTEOARTHRITIS Procedure Operation Date: 09/17/18 07:15 Actual Procedures p Right Total Knee Arthroplasty(Right) - Jaret Martins MD Surgeon Jaret Martins MD Mule Tender Dom BRITTON Estimated Blood Loss 5 Findings Consistent with Post-Op Diagnosis Specimens Bone cuts Drains 2 Hemovac Anesthesia Type Spinal MAC Complications none Disposition Accompanied Patient To Recovery: No Disposition: Recovery Room Indications 68-year-old female with chronic progressive osteoarthritis in her right knee. She has successful left knee replacement in the past. Right knee has a varus knee [id number] medial compartment with some bone loss. Description of Procedure The patient was taken to the operating room and anesthetized under spinal MAC regional block. Patient was placed supine on the the operating table. A pneumatic tourniquet was placed about the right upper thigh. The knee exam demonstrated good flexibility good range of motion varus knee no instability. The involved leg was elevated exsanguinated with Esmarch bandage and the pneumatic tourniquet was raised to 325 millimeters mercury. A longitudinal incision was made across the anterior knee. Skin flaps were elevated. An incision was made into the medial retinaculum and extended up into the mid third of the quadriceps tendon and extended down to the tibial tubercle. Intra- articular findings demonstrated medial compartment patellofemoral osteoarthritis [id number] with bone loss flattening of the femoral condyle medial compartment with grade 3-4 patellofemoral DJD. The knee was exposed by excising cruciate ligaments and menisci. The infrapatellar fat pad was resected. The fat pad over the anterior femur at the upper aspect of the articular surface was resected for placement of the component in that area. A subperiosteal peel lateral release was performed around the patella. Typical medial releases were performed to balance ligaments in flexion extension gaps. The Romano [employer]hew journey 2.0 total knee arthroplasty system was utilized for the procedure. The custom femoral cutting guide was pinned in position. The distal femoral cut was made. The size 6, 5 in 1 cutting block was placed. The anterior posterior and chamfer cuts were made. The knee was extended and a free hand cut technique was performed to the patella. The patella with was measured and the width was reproduced using a 35 patella component. 3 drill holes are made for the patella component pegs. The tibia was then subluxed. The custom tibial cutting block was pinned in position and the proximal tibial cut was made with the oscillating saw. The size 3 tibial trial was externally rotated in line with the tibial tubercle and pinned in position. The punch for the stem was used. The femoral trial was inserted and centered the notch cutting devices were used and the collet was placed. Tibial trials were used for the insert. The size 12 posterior stabilized high flex trial gave balanced ligaments through full range of motion. Patella tracking was assessed with range of motion. The patella tracked centrally. The trials were removed. The Orthomix anesthetic cocktail was injected per protocol. The cut bone surfaces and soft tissue were copiously irrigated with antibiotic solution with bacitracin. The final components were cemented with Simplex cement. The final components were Rom[employer]hew journey 2.0 posterior stabilized right femur, 3 tibial baseplate, 12 mm posterior stabilized poly-insert, 35 mm symmetrical patella. While the cement cured the Betadine soak was used per protocol. When the cement cured the knee was copiously irrigated with pulsatile lavage saline solution. 2 drains were brought out laterally connected to Hemovac. The quadriceps tendon and medial retinaculum were closed with interrupted [id number] #1 Vicryl sutures. The knee was taken through full range of motion and repair was secure. The subcutaneous tissues were closed with 2-0 Vicryl sutures. The skin was closed with mehran. A sterile dressing was applied. The tourniquet was let down and the patient had good capillary refill to the extremity. The patient tolerated the procedure well. My physician assistant customer service manager Dom BRITTON assisted in the procedure including prepping draping leg positioning soft tissue retraction instrument management and assisted in the closure ,dressings application and will participate in postoperative care the patient. I attest to the content of the Intraoperative Record and any orders documented therein. Any exceptions are noted below.
--- NOTE | 2018-09-17 09:28 | XRay Report ---
RIGHT KNEE 2 VIEWS History: Right total knee arthroplasty. Degenerative arthritis. Postop. FINDINGS: The patient is status post a right total knee arthroplasty. The hardware is intact. No frac ture or dislocation. Skin mehran and surgical drains are in place. IMPRESSION: Right total knee arthroplasty. No evidence for hardware complication. Electronically signed by: Dashawn Hughes M.D. 09/17/2018 9:26 AM
--- NOTE | 2018-09-17 10:03 | Anesthesiology Progress Note ---
Date of Service September 17, 2018 Anesthesia Post Procedure Vital Signs Vital Signs: Temp Pulse Pulse Resp BP Pulse Ox 09/17/18 09:45 72 22 129/90 100 09/17/18 09:35 74 25 H 139/53 L 100 09/17/18 09:25 72 21 124/67 100 09/17/18 09:15 74 23 117/48 L 99 09/17/18 09:05 37.0 C 95 H 12 99/43 L 97 09/17/18 06:23 36.8 C 62 20 163/78 H 98 Pain Intensity Right Knee: Pain Intensity: 0 Notes Mental Status: alert / awake / arousable Patient Amnestic to Procedure: Yes Nausea / Vomiting: adequately controlled Pain: adequately controlled Airway Patency, RR, SpO2: stable & adequate BP & HR: stable & adequate Hydration State: stable & adequate Anesthetic Complications: no major complications apparent
[2018-09-17] MEDS ORDERED: HYDROmorphone INJ 0.5 MG/0.5 ML SYR IV PRN (10:26)
[2018-09-17] MEDS ORDERED: NALOXONE HCL 0.4 MG/1 ML VIAL/CARP IV PRN (10:26)
[2018-09-17] MEDS ORDERED: MAGNESIUM HYDROXIDE SUSP 30 ML UDC PO PRN (10:26)
[2018-09-17] MEDS ORDERED: SODIUM CHLORIDE 0.9% 1000ML 1,000 ML IV SCH (10:26)
[2018-09-17] MEDS ORDERED: BISACODYL 10 MG SUPP PR PRN (10:26)
[2018-09-17] MEDS ORDERED: OXYCODONE HCL IR 5 MG TAB (IMMEDIATE RELEASE) PO PRN (10:26)
--- NOTE | 2018-09-17 12:24 | Hospitalist Consultation ---
Date of Consultation September 17, 2018 Assessment & Plan (1) Status post right knee replacement: POD #[address] Martins History of osteoarthritis with failed outpatient therapy Estimated blood loss 5 mL No pain currently Able to move foot and toes on right leg PT/OT ordered Further management per orthopedic team (2) Hypercholesterolemia: Continue atorvastatin 40 mg p.o. daily Follow outpatient (3) Elevated hemoglobin A1c: No history of diabetes mellitus Only slightly elevated at 5.8 Follow as an outpatient No further intervention this admission. Glucose 100 on outpatient labs 09/01/2018 (4) DVT prophylaxis: No prior history of thrombolytic disease Aspirin 81 mg p.o. twice daily per orthopedics Increase activity as tolerated per orthopedics Thank you for including us in the care of this patient. Please refer to Dr. Linton's addendum for further recommendations. Supervising Physician Co-Signing Physician Notes PA Supervision Note: I personally saw and examined the patient. I verified all dubon points and agree with TOBI Alcala with the following exceptions and/or additions: Patient doing very well postoperatively. Her feeling and strength are starting to come back in her lower extremities. She denies chest pain shortness of breath, no nausea and ate a good lunch. Abdominal pains. We discussed her diagnosis of prediabetes and she has already lost 15 pounds in last year intentionally. Vitals reviewed Gen: AAOx3, NAD HEENT: Anicteric sclerae, EOMI CV: RRR 2/6 systolic ejection murmur heard best at the right upper sternal border, nl S1S2 Pulm: CTAB no wcr Abd: +BS soft NT ND no masses or hernias Ext: No edema, 2+ DP pulses, right knee with Rogerio dressing in place not removed Skin: No rashes, warm/dry 68-year-old female with history of hyperlipidemia and osteoarthritis, here status post right TKA. She is doing very well postoperatively -As for her murmur-recommended that she follow-up with her PCP on this-could just be a flow murmur for postoperative anemia/blood loss, but could be mild aortic stenosis -Counseled for her prediabetes on importance of following a low carbohydrate diet, increasing exercise once her knee heals, and continued weight loss-she is appreciative hearing about this diagnosis. The hospitalist service will sign off at this time as the patient is very medically stable. Please feel free to reconsult or call with acute issues. History of Present Illness Reason for Consultation: Postoperative medical management Requesting Physician: Dr. Martins Attending Physician: Jaret Martins MD History of Present Illness This is a 68-year-old female that presents with a past medical history of hypercholesterolemia and osteoarthritis. She presented today for elective right total knee arthroplasty. She underwent the procedure without complication or difficulty. She had an estimated blood loss of 5 mL. She is seen at bedside with her present. 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 She denies any significant pain. She is alert and oriented with no acute issues. She denies any recent illness or travel. She has no history of thromboembolic disease. She has no tobacco or ethanol abuse history. She is active and goes to the [facility] to swim and do water volleyball several times per week. 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 She has no acute complaints. It should be noted that the patient history reflects gastroesophageal reflux. Patient denies any history of GERD. Allergies Allergy/AdvReac Type Severity Reaction Status Date / Time bacitracin Allergy Unknown will make Verified 09/17/18 05:59 wounds that med may be used on worse neomycin Allergy Unknown will make Verified 09/17/18 05:59 wounds that med may be used on worse polymyxin B Allergy Unknown will make Verified 09/17/18 05:59 wounds that med may be used on worse Home Medications Home Medications Medication Instructions Recorded Confirmed Type acetaminophen [Tylenol] 325 mg PO Q6H PRN 08/03/18 09/17/18 History atorvastatin 20 mg PO QPM 08/03/18 09/17/18 History calcium carbonate [Calcium 500] 500 mg PO QPM 08/03/18 09/17/18 History cholecalciferol (vitamin D3) 1,000 unit PO QAM 08/03/18 09/17/18 History [Vitamin D3] cranberry 450 mg PO DAILY 08/03/18 09/17/18 History fluticasone 1 spray INTRANASAL DAILY 08/03/18 09/17/18 History [id number]-[id number] 1 tab PO BID PRN 08/03/18 09/17/18 History [Osteo Bi-Flex Triple Strength] inulin [Fiber Gummies] 1 tab PO QPM 08/03/18 09/17/18 History multivitamin 1 cap PO QAM 08/03/18 09/17/18 History tramadol 50 mg PO QID PRN 08/03/18 09/17/18 History Patient History Medical History GERD (gastroesophageal reflux disease) Hyperlipidemia Surgical History History of arthroplasty of left knee History of carpal tunnel release B/L Hx of partial thyroidectomy 2/2 CYST Hx of tubal ligation Status post trigger finger release RIGHT Social History Preferred Language: Turkmen Communication Ability: Effective 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 Beliefs That Will Affect Care: None Current Living Situation: Spouse Other Information That Helps Us Care for You: No Feels Safe at Home: Yes Safety Concerns: Feels Safe At This Time Smoking Status: Never smoker Hx Alcohol Use: No Hx Substance Use: No Review of Systems A total of 12 systems was reviewed and is negative other than as listed above in the HPI Physical Exam Vital Signs (Past 24 Hours): Last Vital Signs Temp 36.5 C 09/17/18 09:55 Pulse 80 09/17/18 11:17 Resp 18 09/17/18 11:17 BP 119/63 09/17/18 11:17 Pulse Ox 96 09/17/18 11:17 Physical Exam: GENERAL : No acute distress EYES: No icterus, gaze conjugate. Pupils equal round and reactive to light NOSE: No evidence of epistaxis. MOUTH: No lesions or candidiasis. Tongue midline. No facial droop. NECK: Supple. No appreciation of stridor or carotid bruits LUNGS: CTA B/L, no wheezes, rales or rhonchi. Good inspirational effort HEART: Regular, rate controlled. No appreciation of murmurs gallops or rubs ABDOMEN: Soft, NT, ND, BS Present. EXTREMITIES: No LE edema, pedal pulses intact. Patient able to move both feet equally. Right leg weak secondary to anesthesia (spinal block). Dressing from foot to hip in place to right leg. This was not taken down to examine the right leg. NEURO: A&OX3. Able to move both lower extremities but weak on the right secondary to anesthesia. No other focal deficits. Pupils equal round and reactive to light. Able to move all extremities. No facial droop. Tongue midline. No slurred speech. Results & Data Laboratory Results No labs drawn this admission Diagnostic Findings RIGHT KNEE 2 VIEWS History: Right total knee arthroplasty. Degenerative arthritis. Postop. FINDINGS: The patient is status post a right total knee arthroplasty. The hardware is intact. No fracture or dislocation. Skin mehran and surgical drains are in place. IMPRESSION: Right total knee arthroplasty. No evidence for hardware complication. Electronically signed by: Dashawn Hughes M.D. 09/17/2018 9:26 AM
[2018-09-17] MEDS: ACETAMINOPHEN 500 MG TAB PO SCH ×2 (13:33→20:48)
[2018-09-17] MEDS: CEFAZOLIN 1000MG 1,000 MG/7.5 ML SYR IV SCH ×2 (15:00→21:56)
[2018-09-17] MEDS: CeleBREX 200 MG CAP PO SCH (20:47)
[2018-09-17] MEDS: SENNA 8.6 MG TAB PO SCH (20:48)
[2018-09-17] MEDS: ASPIRIN 81 MG ECTAB PO SCH (20:48)
[2018-09-17] MEDS: CALCIUM CARBONATE 1250MG TAB PO SCH (20:48)
[2018-09-17] MEDS: ATORVASTATIN 20 MG TAB PO SCH (20:48)
[2018-09-17] MEDS: DOCUSATE SODIUM 100 MG CAP PO SCH (20:49)
[2018-09-17] MEDS: TRAMADOL HCL 50 MG TABLET PO PRN ×2 (21:56→23:11)
[2018-09-18] MEDS: ACETAMINOPHEN 500 MG TAB PO SCH ×3 (05:33→22:02)
[2018-09-18 06:15] LABS: Hematocrit (blood only) 32.9 % (37-47); Hemoglobin 11.2 g/dL (12.0-16.0); Mean Corpuscular Volume 93.2 fL (80-100); Mean Platelet Volume 10.3 fL (7.4-10.4); Platelet Count 177 K/uL (130-400); RDW Coefficient of Variation 12.7 % (11.5-14.5); RDW Standard Deviation 43.4 fL (36.4-46.3); Red Blood Count 3.53 M/uL (4.2-5.4); White Blood Count 21.09 K/uL (4.8-10.8)
[2018-09-18 06:53] LABS: BUN Creatinine Ratio 24.5 (10-20); Calcium 8.5 mg/dl (8.5-10.1); Creatinine Clr Calc Pharmacy 70.4 ml/min; Est GFR (African American) 92.8; Potassium 3.9 mmol/L (3.5-5.1)
--- NOTE | 2018-09-18 08:08 | Anesthesiology Progress Note ---
Date of Service September 18, 2018 Anesthesia Post Procedure Vital Signs Vital Signs: Temp Pulse Pulse Resp BP Pulse Ox 09/18/18 06:57 36.7 C 63 18 119/68 96 09/18/18 03:30 36.8 C 65 16 116/67 97 09/17/18 23:11 36.4 C L 75 16 134/70 95 09/17/18 19:31 36.8 C 66 17 116/67 95 09/17/18 15:39 36.7 C 48 L 17 131/68 94 09/17/18 13:16 78 18 129/69 97 09/17/18 12:17 68 18 125/68 96 09/17/18 11:17 80 18 119/63 96 09/17/18 10:53 73 18 134/75 09/17/18 10:00 73 23 122/67 99 09/17/18 09:55 36.5 C 69 20 133/72 100 09/17/18 09:45 72 22 129/90 100 09/17/18 09:35 74 25 H 139/53 L 100 09/17/18 09:25 72 21 124/67 100 09/17/18 09:15 74 23 117/48 L 99 09/17/18 09:05 37.0 C 95 H 12 99/43 L 97 Pain Intensity Right Knee: Pain Intensity: 4 Notes Mental Status: alert / awake / arousable and participated in evaluation Patient Amnestic to Procedure: Yes Nausea / Vomiting: adequately controlled Pain: adequately controlled Airway Patency, RR, SpO2: stable & adequate BP & HR: stable & adequate Hydration State: stable & adequate Neuraxial Anesthesia: was administered and sensory block resolved Anesthetic Complications: no major complications apparent and Pt Satisfied with anesthetic care
--- NOTE | 2018-09-18 08:10 | Orthopedic Progress Note ---
Date of Service September 18, 2018 Assessment & Plan (1) Status post right knee replacement: POD #1, Right TKA PT/ OT DVT proph- ASA D/C planning- Home w OPPT As per medicine Subjective POD #1, Doing well, denies sob, cp, n/v, pain controlled well. Physical Exam Vital Signs (Past 24 Hours): Last Vital Signs Temp 36.7 C 09/18/18 06:57 Pulse 63 09/18/18 06:57 Resp 18 09/18/18 06:57 BP 119/68 09/18/18 06:57 Pulse Ox 96 09/18/18 06:57 Physical Exam: Right knee dressings c/d/i, no drainage, no calf tenderness, toes and ankle mobile, A&Ox3.
[2018-09-18] MEDS: TRAMADOL HCL 50 MG TABLET PO PRN ×3 (08:45→22:03)
[2018-09-18] MEDS: ASPIRIN 81 MG ECTAB PO SCH ×2 (08:46→22:01)
[2018-09-18] MEDS: CHOLECALCIFEROL 1,000 UNITS TAB PO SCH (08:46)
[2018-09-18] MEDS: DOCUSATE SODIUM 100 MG CAP PO SCH ×2 (08:46→22:00)
[2018-09-18] MEDS: MULTIVITAMIN TAB PO SCH (08:46)
[2018-09-18] MEDS: CeleBREX 200 MG CAP PO SCH ×2 (08:46→22:00)
[2018-09-18] MEDS: FLUTICASONE PROPIONATE NA SPR 16 GM BTL SCH (08:46)
[2018-09-18] MEDS ORDERED: NON-FORMULARY MEDICATION (Multivitamin 1 CAP) PO SCH (09:00)
[2018-09-18] MEDS ORDERED: NON-FORMULARY MEDICATION (Cranberry Fruit [Cranberry] 450 MG) PO SCH (09:00)
[2018-09-18] MEDS: SENNA 8.6 MG TAB PO SCH (22:00)
[2018-09-18] MEDS: CALCIUM CARBONATE 1250MG TAB PO SCH (22:01)
[2018-09-18] MEDS: ATORVASTATIN 20 MG TAB PO SCH (22:01)
[2018-09-19] MEDS: ACETAMINOPHEN 500 MG TAB PO SCH (05:43)
[2018-09-19 06:18] LABS: Hematocrit (blood only) 30.8 % (37-47); Hemoglobin 10.1 g/dL (12.0-16.0); Mean Corpuscular Hgb Conc 32.8 g/dL (32-36); Mean Corpuscular Volume 95.1 fL (80-100); Mean Platelet Volume 10.4 fL (7.4-10.4); Platelet Count 156 K/uL (130-400); RDW Coefficient of Variation 13.2 % (11.5-14.5); Red Blood Count 3.24 M/uL (4.2-5.4)
[2018-09-19 06:51] LABS: BUN Creatinine Ratio 23.7 (10-20); Calcium 8.2 mg/dl (8.5-10.1); Creatinine Clr Calc Pharmacy 71.3 ml/min; Est GFR (African American) 94.3; Est GFR (Non-African American) 81.3; Potassium 3.7 mmol/L (3.5-5.1)
[2018-09-19] MEDS: ASPIRIN 81 MG ECTAB PO SCH (07:48)
[2018-09-19] MEDS: DOCUSATE SODIUM 100 MG CAP PO SCH (07:48)
[2018-09-19] MEDS: MULTIVITAMIN TAB PO SCH (07:48)
[2018-09-19] MEDS: CHOLECALCIFEROL 1,000 UNITS TAB PO SCH (07:48)
[2018-09-19] MEDS: CeleBREX 200 MG CAP PO SCH (07:48)
[2018-09-19] MEDS: FLUTICASONE PROPIONATE NA SPR 16 GM BTL SCH (07:49)
[2018-09-19] MEDS: TRAMADOL HCL 50 MG TABLET PO PRN (07:51)
--- NOTE | 2018-09-19 09:38 | Orthopedic Progress Note ---
Date of Service September 19, 2018 Assessment & Plan (1) Status post right knee replacement: POD #2, Right TKA PT/ OT DVT proph- ASA D/C planning- Home w OPPT today As per medicine Subjective POD #2, Doing well, denies sob, cp, n/v, pain controlled well. resting comfortably in bed today Physical Exam Vital Signs (Past 24 Hours): Last Vital Signs Temp 36.8 C 09/19/18 06:29 Pulse 69 09/19/18 06:29 Resp 16 09/19/18 06:29 BP 98/56 L 09/19/18 06:29 Pulse Ox 97 09/19/18 06:29 Toes mobile, NVI. Calves soft, non tender. Dressing in place.
--- NOTE | 2018-09-21 10:37 | Discharge Summary ---
Date of Service October 06, 2018 Discharge Data Consultations 09/14/18 10:53 Consult Hospitalist Routine 09/17/18 10:26 Consult Case Management - Discharge Planning Routine Procedures Performed Operation Date: 09/17/18 07:15 Actual Procedures p Right Total Knee Arthroplasty(Right) - Jaret Martins MD
--- NOTE | 2018-10-04 21:35 | Discharge Summary ---
HISTORY OF PRESENT ILLNESS: This is a 68-year-old female patient of Dr. Martins's complaining of chronic right knee pain. She failed conservative treatment and elected to proceed with a right total knee arthroplasty. PAST MEDICAL HISTORY: Hypercholesterolemia, osteoarthritis, otherwise a healthy 68-year-old female. POSTOPERATIVE COURSE: The patient underwent a right total knee arthroplasty on 09/17/2018. She was followed closely with medical consultation, DVT prophylaxis in the form of aspirin, physical therapy and pain control. The patient did very well postoperatively and she was discharged home on postoperative day #2. PHYSICAL EXAMINATION: On discharge, right knee Silverlon dressing was clean, dry and intact. There was no redness or drainage. She had no calf tenderness. Negative Homans sign. Neurologically and neurovascularly she is intact in her right lower extremity. DIAGNOSES: Status post right total knee arthroplasty with a history of hypercholesterolemia and osteoarthritis. PLAN: The patient was discharged home on her preadmission medications. She will continue aspirin for DVT prophylaxis and we will add pain medications for her regimen. She will continue outpatient physical therapy. The patient will follow up as scheduled as an outpatient with Dr. Martins.
== END 2018-09-19 11:33 | disposition home or self-care (01) | DRG 470 ==
LOC: ASU 04:53 → 3E 09:09